=== PATIENT | male | born 1950 | race Caucasian/White ===

== ENCOUNTER → 2018-12-22 | Outpatient (CLI) | payer MEDICARE | END | disposition home or self-care (01) | LOC: PCVCCLINIC 11:43 | PROVIDERS: ATTEND Internal Medicine Cardiovascular Disease | DX: I25.10 Atherosclerotic heart disease of native coronary artery without angina pectoris (principal); I10 Essential (primary) hypertension; R94.31 Abnormal electrocardiogram [ECG] [EKG]; R93.1 Abnormal findings on diagnostic imaging of heart and coronary circulation; E78.00 Pure hypercholesterolemia, unspecified; E78.5 Hyperlipidemia, unspecified; Z79.82 Long term (current) use of aspirin; Z79.899 Other long term (current) drug therapy | CPT/HCPCS: 93005; G0463 ==

== ENCOUNTER → 2019-01-12 | Outpatient (CLI) | payer MEDICARE ==
[~2019-01-12] MED LIST: REGADENOSON 0.4 MG/5 ML DISP.SYRIN. IV ONE
--- NOTE | 2019-01-12 09:56 | PCVCIMAG ---
APPROVED REPORT Study performed: 01/12/2019 09:17:14 EXAM: Comprehensive 2D, Doppler, and color-flow Echocardiogram Patient Location: Echo lab Status: routine BSA: 2.04 HR: 82 bpmBP: 120/78 mmHg Rhythm: NSR Other Information Study Quality: Adequate Risk Factors: Cardiac Risk Factors: HTN, Hyperlipidemia Indications Elevated Calcium score, Pre-Diabetes 2D Dimensions IVSd: 13.52 (7-11mm)LVOT Diam: 22.46 (18-24mm) LVDd: 42.33 mm PWd: 11.19 (7-11mm)Ascending Ao: 35.02 (22-36mm) LVDs: 36.64 (25-40mm) Left Atrium: 37.00 (27-40mm) Aortic Root: 30.13 mm LV Single Plane 4CH: 62.88 % LV Single Plane 2CH: 64.09 % Biplane EF: 63.2 % Volumes Left Atrial Volume (Systole) Single Plane 4CH: 48.08 mLSingle Plane 2CH: 24.87 mL LA ESV Index: 17.00 mL/m2 Aortic Valve AoV Peak Artem.: 1.31 m/s AO Peak Gr.: 6.86 mmHg Mitral Valve E/A Ratio: 1.1 MV Decel. Time: 273.16 ms MV E Max Artem.: 0.69 m/s MV A Artem.: 0.60 m/s IVRT: 121.11 ms TDI E/Lateral E': 6.27E/Medial E': 8.63 Medial E' Artem.: 0.08 m/s Lateral E' Artem.: 0.11 m/s Pulmonary Valve PV Peak Gr.: 3.17 mmHg Pulmonary Vein P Vein S: 0.66 m/sP Vein A: 0.37 m/s P Vein D: 0.40 m/sP Vein A Dur.: 79.6 msec P Vein S/D Ratio: 1.65 Left Ventricle The left ventricle is normal size. There is normal LV segmental wall motion. There is normal left ventricular wall thickness. Left ventricular systolic function is normal. The left ventricular ejection fraction is within the normal range. LVEF is 55-60%. The left ventricular diastolic function is normal. Right Ventricle The right ventricle is normal size. The right ventricular systolic function is normal. Atria The left atrium size is normal. The right atrium size is normal. Aortic Valve The aortic valve is normal in structure. No aortic regurgitation is present. There is no aortic valvular stenosis. Mitral Valve The mitral valve is normal in structure. There is no mitral valve regurgitation noted. No evidence of mitral valve stenosis. Tricuspid Valve The tricuspid valve is normal in structure. Trace tricuspid regurgitation. Pulmonic Valve The pulmonary valve is normal in structure. There is no pulmonic valvular regurgitation. Great Vessels The aortic root is normal in size. IVC is normal in size and collapses >50% with inspiration. Pericardium There is no pericardial effusion. <Conclusion> The left ventricle is normal size. There is normal left ventricular wall thickness. Left ventricular systolic function is normal. The right ventricle is normal size. The left atrium size is normal. The right atrium size is normal. The aortic valve is normal in structure. The mitral valve is normal in structure. Trace tricuspid regurgitation.
--- NOTE | 2019-01-12 12:43 | PCVCIMAG ---
APPROVED REPORT Imaging Protocol: Rest Tc-99m/Stress Tc-99m 1 day Study performed: 01/12/2019 10:13:43 Indication: Abnormal EKG, Dyspnea, CAD Patient Location: Out-Patient Stress Nurse: Charlotte Damico RN, Berta Palacios RN DC Tech:Damari MonroeYOSHI moonMT Ht: 5 ft 10 in Wt: 194 lbs BSA: 2.06 m2 HR: 93 bpm BP: 128/72 mmHg BMI: 27.83 Rhythm: Sinus Rhythm Medical History Medical History: Hyperlipidemia, HTN, Former Smoker Medications: ASA, Atorvastatin, Losartan Allergies: No known drug allergies Cardiac Risk Factors: Age Pretest Chest Pain Characteristics: No chest pain Exercise History: Physically active Resting Data Rest SPECT myocardial perfusion imaging was performed in supine position 45 minutes following the intravenous injection of 10.7 mCi of Tc-99m Sestamibi. Time of rest injection: 0945 Date: 01/12/2019 Administration Route: IV Administration Site: Right Hand Exercise Stress At peak stress, the patient was injected intravenously with 31.8mCi of Tc-99m Sestamibi. Time of stress injection: 1100 Date: 01/12/2019 Administration Route: IV Administration Site: Right Hand Patient continued to exercise for 1 minute(s). Gated Stress SPECT was performed 30 minutes after stress injection. The images were gated to evaluate regional wall motion and calculate left ventricular ejection fraction. Stress Test Details Stress Test: Exercise stress testing was performed using a Silvio protocol. HRMax Heart Rate (APMHR): 150 bpm Resting HR: 93 bpmTarget HR (85% APMHR): 127 bpm Max HR Achieved: 150 bpm % of APMHR: 100 Recovery HR: 94 bpm HR response to stress: Normal HR response to stress BP Resting BP: 128/72 mmHg Max BP: 168/72 mmHg Recovery BP: 127/64 mmHg BP response to stress: Normal blood pressure response to stress. ECG Resting ECG: Sinus Rhythm Stress ECG: Sinus Tachycardia ST Change: Non-ischemic Arrhythmia: PVC's Recovery ECG: Sinus Rhythm Clinical Reason for Termination: Maximal effort, Fatigue, Dyspnea Stress Symptoms: Leg Fatigue Exercise duration: 7 min 00 sec Exercise capacity: 10.10 METs Symptoms resolved during recovery. Study Quality Study: Good Artifact: Mild Diaphragmatic artifact Study Data Post stress, the left ventricular ejection was 71%.. SSS: 0 SRS: 0 SDS: 0 TID = 1.09. Perfusion There is a small area of mildly reduced uptake in the basal segment of the inferior wall which is seen on the stress images as well as the resting images. This area thickens and moves normally and is most consistent with attenuation artifact. Wall Motion Normal left ventricular wall motion. Nuclear Conclusion ECG Findings: negative for ischemia Clinical Findings: negative for ischemia Nuclear Findings: negative for ischemia Exercise Capacity: normal Left Ventricular Function: normal Risk Study: low This study is of low probability for inducible ischemia or prior infarct. Normal global and segmental LV systolic function.
== END | disposition home or self-care (01) ==
LOC: PCVCIMAG 08:53
PROVIDERS: ATTEND Internal Medicine Cardiovascular Disease
DX: R93.1 Abnormal findings on diagnostic imaging of heart and coronary circulation (principal); R73.03 Prediabetes; I10 Essential (primary) hypertension; I25.10 Atherosclerotic heart disease of native coronary artery without angina pectoris; E78.00 Pure hypercholesterolemia, unspecified; E78.2 Mixed hyperlipidemia; Z87.891 Personal history of nicotine dependence
CPT/HCPCS: 78452; 93017; 93306; A9500; G0463; J2785